=== PATIENT | male | born 1945 | race African-American/Black ===

== ENCOUNTER 2017-11-13 15:38 | Inpatient (IN) | payer MEDICAID, MEDICARE ==
[~2017-11-13] VITALS: Ht 180.3 cm; Wt 74.5 kg
[~2017-11-13 15:38] MED LIST: GLU5 PO; GLU850 PO; NOR10T PO
[2017-11-13 15:45] VITALS: Ht 180.3 cm; Wt 74.5 kg
[2017-11-13 17:31] LABS: BASOPHIL % 0.2 % (0-2); PLATELET COUNT 276 x10^3mcL (130-400)
[2017-11-13 17:33] LABS: RED CELL DISTRIBUTION WIDTH 14.8 % (11.5-14.5)
[2017-11-13 17:39] LABS: CARBON DIOXIDE 26.6 mmol/L (21-32); CHLORIDE SERUM 104 mmol/L (98-107); CREATININE SERUM 1.2 mg/dL (0.7-1.3); GFR1 > 60 mL/min; GLUCOSE SERUM 121 mg/dL (74-106); POTASSIUM SERUM 4.2 mmol/L (3.5-5.1); SODIUM SERUM 141 mmol/L (136-145)
[2017-11-13 18:20] LABS: CHOLESTEROL/HDL RATIO 3.8; MAGNESIUM 2.1 mg/dL (1.8-2.4); PHOSPHOROUS 3.5 mg/dL (2.5-4.9)
[2017-11-13] MEDS ORDERED: NEURONTIN800 MG PO (18:29)
[2017-11-13] MEDS ORDERED: NOR10 PO (18:30)
[2017-11-13] MEDS ORDERED: SIMVASTATIN20 M1 PO (18:30)
[2017-11-13] MEDS ORDERED: MORPHINE SULFAT15 MG PO (18:31)
[2017-11-13] MEDS ORDERED: MULTI-VITAMINS1 TAB PO (18:31)
[2017-11-13 18:32] LABS: T3 TOTAL 0.68 ng/mL
[2017-11-13] MEDS ORDERED: LANTI SQ (18:32)
[2017-11-13 18:47] LABS: FREE T4 1.32 ng/dL (0.76-1.46); FREE THYROXINE INDEX 2.8 ug/dL (1.4-4.5); T4(THYROXINE) 8.3 ug/dL (4.7-13.3)
[2017-11-13 19:51] VITALS: BP 136/65
[2017-11-13] MEDS ORDERED: METFORMIN HYD1000 M2 PO (20:30)
[2017-11-13] MEDS ORDERED: TRULICITY0.75 MG/0. SC (20:33)
[2017-11-13 22:17] LABS: TOTAL IRON BINDING CAPACITY 371 ug/dL (250-450)
[2017-11-13 22:18] LABS: IRON 32 ug/dL (65-170)
[2017-11-13 22:26] LABS: RED BLOOD CELLS 4.04 M/mm3 (4.52-5.90)
[2017-11-14 06:01] VITALS: BP 127/74
[2017-11-14 06:11] LABS: BASOPHIL % 0.3 % (0-2); PLATELET COUNT 242 x10^3mcL (130-400)
[2017-11-14 06:25] LABS: CALCIUM 8.6 mg/dL (8.5-10.1); CARBON DIOXIDE 26.6 mmol/L (21-32); CHLORIDE SERUM 109 mmol/L (98-107); CREATININE SERUM 1.1 mg/dL (0.7-1.3); GFR1 > 60 mL/min; GLUCOSE SERUM 80 mg/dL (74-106); MAGNESIUM 2.2 mg/dL (1.8-2.4); SODIUM SERUM 144 mmol/L (136-145)
[2017-11-14 06:34] LABS: RED CELL DISTRIBUTION WIDTH 15.1 % (11.5-14.5)
[2017-11-14 06:39] LABS: microscopic required? NO
[2017-11-14 07:52] LABS: AMPHETAMINE QUAL UR NONE DETECTED (NEG <=1000)
[2017-11-14 07:55] LABS: urine erythrocyte NEGATIVE (NEGATIVE)
[2017-11-14 09:21] VITALS: BP 149/76
[2017-11-14 12:37] VITALS: BP 104/60
[2017-11-14 16:08] VITALS: BP 114/58
[2017-11-14 21:05] VITALS: BP 127/61
[2017-11-15 05:54] VITALS: BP 145/75
[2017-11-15 06:48] LABS: BASOPHIL % 0.7 % (0-2); PLATELET COUNT 257 x10^3mcL (130-400)
[2017-11-15 06:50] LABS: RED CELL DISTRIBUTION WIDTH 14.8 % (11.5-14.5)
[2017-11-15 06:52] LABS: CALCIUM 8.7 mg/dL (8.5-10.1); CARBON DIOXIDE 23.4 mmol/L (21-32); CHLORIDE SERUM 107 mmol/L (98-107); CREATININE SERUM 1.1 mg/dL (0.7-1.3); GFR1 > 60 mL/min; GLUCOSE SERUM 99 mg/dL (74-106); MAGNESIUM 1.9 mg/dL (1.8-2.4); PHOSPHOROUS 3.6 mg/dL (2.5-4.9); POTASSIUM SERUM 3.9 mmol/L (3.5-5.1); SODIUM SERUM 141 mmol/L (136-145)
[2017-11-15] MEDS ORDERED: CLEOCIN HCL300 MG PO (10:01)
[2017-11-15] MEDS ORDERED: LEVAQUIN750 MG PO (10:02)
[2017-11-15] MEDS ORDERED: BD LACTINEX1.4 MG PO (10:03)
[2017-11-15 10:56] VITALS: BP 141/69
[2017-11-15 11:47] VITALS: BP 141/69
== END 2017-11-15 13:35 | disposition home or self-care (01) | DRG 380 ==
LOC: ED 15:38 → DU 17:29
PROVIDERS: Emergency Medicine; Family Medicine
PROC: 0JBR0ZZ Excision of Left Foot Subcutaneous Tissue and Fascia, Open Approach (ICD-10-PCS; principal; 2017-11-14)
DX: E11.621 Type 2 diabetes mellitus with foot ulcer (principal); L97.529 Non-pressure chronic ulcer of other part of left foot with unspecified severity; L97.521 Non-pressure chronic ulcer of other part of left foot limited to breakdown of skin; E11.42 Type 2 diabetes mellitus with diabetic polyneuropathy; E11.51 Type 2 diabetes mellitus with diabetic peripheral angiopathy without gangrene; E11.65 Type 2 diabetes mellitus with hyperglycemia; E11.628 Type 2 diabetes mellitus with other skin complications; L03.116 Cellulitis of left lower limb; M47.894 Other spondylosis, thoracic region; I10 Essential (primary) hypertension; B19.20 Unspecified viral hepatitis C without hepatic coma; J98.11 Atelectasis; Z89.421 Acquired absence of other right toe(s); Z79.4 Long term (current) use of insulin
CPT/HCPCS: 83880; 84439; 94150; 97110-GP; J0295; J1815; J1956; J2543; J3490; J7030; J7042; Q0092